=== PATIENT | male | born 1980 | race African-American/Black ===

== ENCOUNTER 2018-02-21 16:11 | Emergency (ER) | payer OTHER ==
[~2018-02-21] VITALS: Ht 190.5 cm; Wt 76.2 kg
[2018-02-21 16:42] VITALS: BP 105/73
[2018-02-21] MEDS ORDERED: KETOROLAC TROMETH 60MG/2ML VIAL IM ONE (17:00)
== END 2018-02-21 17:23 | disposition home or self-care (01) ==
LOC: ER 16:17
DX: S30.810A Abrasion of lower back and pelvis, initial encounter (principal); F17.210 Nicotine dependence, cigarettes, uncomplicated; W19.XXXA Unspecified fall, initial encounter; Y93.89 Activity, other specified; Y92.89 Other specified places as the place of occurrence of the external cause; Y99.8 Other external cause status
CPT/HCPCS: 96372; 99283; J1885

== ENCOUNTER 2018-03-06 22:05 | Emergency (ER) | payer OTHER ==
[~2018-03-06] VITALS: Ht 190.5 cm; Wt 77.7 kg
[2018-03-06 22:34] VITALS: BP 119/72
== END 2018-03-07 00:45 | disposition home or self-care (01) ==
LOC: ER 22:05
DX: S70.262A Insect bite (nonvenomous), left hip, initial encounter (principal); L02.416 Cutaneous abscess of left lower limb; F17.210 Nicotine dependence, cigarettes, uncomplicated; W57.XXXA Bitten or stung by nonvenomous insect and other nonvenomous arthropods, initial encounter; Y93.89 Activity, other specified; Y99.8 Other external cause status; Y92.89 Other specified places as the place of occurrence of the external cause